=== PATIENT | male | born 1960 | race African-American/Black ===

== ENCOUNTER 2016-10-19 14:06 | Emergency (ER) | payer BC ==
[~2016-10-19 14:06] MED LIST: ABACAVIR300 M1; KLOR-CON-EF 2525 MEQ PO; LISINOPRIL-HCT1 EAC2 PO; NORCO 5-325 TA1 EACH PO
[2016-10-19 15:47] LABS: BASO % 0.2 % (0-2); EOS % 0.2 % (0-7); HCT-HEMATOCRIT 44.6 % (36.0-53.5); HGB-HEMOGLOBIN 15.6 gm/dl (13.5-17.0); LYMPH % 31.2 % (20-45); LYMPH ABSOLUTE COUNT 1.3 tho/cmm (0.8-4.5); MCH (MEAN CORPUSCULAR HGB) 30.8 pg (28.0-32.0); MEAN PLATELET VOLUME 10.9 cmc (9.4-12.4); MONO % 7.2 % (0-12); MONOCYTE ABSOLUTE COUNT 0.3 tho/cmm (0.0-1.2); NEUTROPHIL ABSOLUTE COUNT 2.5 tho/cmm (1.6-8.0); NEUTROPHIL-AUTOMATED 2.5 tho/cmm (1.6-8.0); NEUTROPHILS % 61.2 % (40-80); PLATELET COUNT 195 tho/cmm (150-450); RED BLOOD COUNT 5.07 mil/cmm (4.40-5.70); RED CELL DISTRIBUTION WIDTH 13.2 % (12.4-16.4)
[2016-10-19 16:06] LABS: ALB/GLOB RATIO 0.8 (0.8-2.0); ALBUMIN 3.5 g/dl (3.5-5.0); ALKALINE PHOSPHATASE 103 U/L (33-138); ALT/SGPT 42 U/L (12-78); ANION GAP 12 mmol/L (0-20); AST/SGOT 45 U/L (10-40); BILIRUBIN,DIRECT 0.2 mg/dl (0.0-0.3); BILIRUBIN,INDIRECT 0.4 mg/dL (0.0-1.0); BILIRUBIN,TOTAL 0.6 mg/dl (0.0-1.5); BLOOD UREA NITROGEN 16 mg/dl (6-24); CALCIUM 8.9 mg/dl (8.5-10.5); CARBON DIOXIDE-VENOUS 29 mmol/L (22-32); CHLORIDE 103 mmol/l (96-110); CREATININE 1.12 mg/dl (0.60-1.30); GLUCOSE 135 mg/dL (70-110); LIPASE 107 U/L (73-393); POTASSIUM 3.1 mmol/L (3.7-5.1); SODIUM 141 mmol/L (135-145); eGFR VALUE FOR BLACK 83 mL/Min
[2016-10-19] MEDS ORDERED: [UNRECOGNIZED DRUG - OTHER] PO (17:54)
[2016-10-19] MEDS ORDERED: VIREAD PO (17:54)
[2016-10-19] MEDS ORDERED: POTASSIUM CHLO20 ME3 PO (17:55)
[2016-10-19] MEDS ORDERED: NORCO 5-325 TA1 EACH PO (18:26)
[2017-01-05] MEDS ORDERED: ZOFRAN ODT4 MG PO (16:43)
[2017-01-05] MEDS ORDERED: NORCO 5/3251 TAB PO (16:43)
== END 2016-10-19 19:00 ==
LOC: EDMED 14:06
PROVIDERS: Emergency Medicine
DX: K80.80 Other cholelithiasis without obstruction (principal); I10 Essential (primary) hypertension; Z79.899 Other long term (current) drug therapy
CPT/HCPCS: J1885